=== PATIENT | female | born 1955 | race African-American/Black ===

== ENCOUNTER → 2016-11-03 | Outpatient (CLI) | payer BC ==
--- NOTE | 2016-11-03 12:09 | XCELERA REPORT ---
[address] [address] Lower Extremity Arterial Evaluation Name: FROY HARRINGTON Age: 61 yrs Gender: Female : 1955 Patient Status: Outpatient Patient Location: Study Date: 11/03/2016 09:21 AM Procedure: A color flow and duplex scan of the lower extremity arteries was performed on the right with velocity and waveform anaylsis. Reason For Study: RLE PAIN, INTERMITTENT CLAUDICATION Ordering Physician: CHRISTIAN TEMPLETON Performed By: Gabino Caruso Measurements and Calculations Right Left CHANGE MANAGEMENT LEAD PSV 113.9 cm/sec Prox PFA PSV -64.5 cm/sec Dist SFA PSV -65.6 cm/sec Dist Pop A PSV 44.0 cm/sec Dist MARIANN PSV 55.6 cm/sec Dist DIRECTOR OF CORPORATE COMMUNICATIONS PSV -62.1 cm/sec Aiden Pedis PSV 46.0 cm/sec Right Side Arterial Evaluation Normal velocity, waveform and triphasic flow are present, from the Common Femoral artery down to the infrageniculate vessels. The ankle-brachial index is 1.04. 0stenosis is noted. Interpretation Summary No hemodynamically significant lesions in the right lower extremity only, on duplex imaging, at rest. : CHRISTIAN TEMPLETON > Omar Harris
== END ==
LOC: SP 09:05
PROVIDERS: ATTEND Family Medicine
DX: I70.211 Atherosclerosis of native arteries of extremities with intermittent claudication, right leg (principal)
CPT/HCPCS: 93926

== ENCOUNTER → 2017-09-28 | Outpatient (CLI) | payer BC ==
--- NOTE | 2017-09-28 17:42 | WOMENS IMAGING REPORT ---
EXAM DESCRIPTION: 3D SCREENING MAMMO BILAT COMPLETED DATE/TIME: 09/28/2017 1:56 pm REASON FOR STUDY: ROUTINE SCREENING; Z12.31 Z12.31 ENCNTR SCREEN MAMMOGRAM FOR MALIGNANT NEOPLASM O F PHILL COMPARISON: 2008, 2009 TECHNIQUE: Standard craniocaudal and mediolateral oblique views of each breast recorded using digita l acquisition and breast tomosynthesis. LIMITATIONS: None. FINDINGS: No masses, calcifications or architectural distortion. No areas of suspicion. Read with the assistance of CAD. .[facility] - R2 Cenova Version 1.3 .[facility] - R2 Cenova Version 1.3 .[facility] - R2 Cenova Version 2.4 .[facility] - R2 Cenova Version 2.4 .[facility] - R2 Client Service And Consulting Manager Version 9.2 IMPRESSION: NORMAL MAMMOGRAM. BIRADS 1. BREAST DENSITY: b. There are scattered areas of fibroglandular density. BIRAD: 1 NEGATIVE RECOMMENDATION: ROUTINE SCREENING Please continue bilateral screening tomosynthesis in August 2018 COMMENT: The patient has been notified of the results by letter per SA requirements. Additional no tification policies are in place for contacting patient with suspicious or incomplete findings. Quality ID #[id number]: The [employer] [place] [employer] [employer] recommends an annual screening mammogram for women aged 40 years or over. This facility utilizes a reminder system to ensure that all patients receive reminder letters, and/or direct phone calls for appointments. This includes reminders for routine scr eening mammograms, diagnostic mammograms, or other Breast Imaging Interventions when appropriate. Th is patient will be placed in the appropriate reminder system. The [employer] [place] [employer] (ACR) has developed recommendations for screening MRI of the breast s in certain patient populations, to be used in conjunction with mammography. Breast MRI surveillanc e may be appropriate for women with more than 20% lifetime risk of developing breast cancer as deter mined by genetic testing, significant family history of the disease, or history of mantle radiation f or Hodgkins Disease. ACR Practice Guidelines 2008. DBT Technology DBT is a type of tomographic mammography. With conventional mammography, overlapping breast tissue ma y make lesions difficult to detect, even with good compression. DBT uses an x-ray tube that rotates a round the breast, taking images at different angles. These images are then combined to create thin sl ices of the breast that the radiologist can view as a 3D reconstruction. The [employer] unit can perform full-field digital mammograms (2D imaging); or DBT (3D imaging); or both, in a combination mode that quickly performs both the mammogram and the tomosynthesis scan while the breast is still compressed. PQRS 6045F: Fluoroscopic imaging is not utilized for breast tomosynthesis. TECHNICAL DOCUMENTATION: FINDING NUMBER: (1) ASSESSMENT: (1) JOB ID: [id number] [employer]- All Rights Reserved
== END ==
LOC: WI 13:17
PROVIDERS: ATTEND Internal Medicine Geriatric Medicine
DX: Z12.31 Encounter for screening mammogram for malignant neoplasm of breast (principal)
CPT/HCPCS: 77063; G0202; 77067

== ENCOUNTER 2017-12-18 15:48 | Emergency (ER) | payer OTHER, BC ==
[2017-12-18] MEDS ORDERED: CEPHALEXIN 500 MG CAPSULE PO ONE (16:34)
[2017-12-18] MEDS ORDERED: ACETAMINOPHEN 325 MG TABLET PO ONE (16:34)
[2017-12-18] MEDS ORDERED: DIPH/PERTUSS(ACELL)/TETANUS VAC/PF 0.5 ML SYR (>=10YO) IM ONE (16:34)
[2017-12-18] MEDS ORDERED: LIDOCAINE 1% INJ-PF (10 MG/ML) 30 ML SDV INJ ONE (16:35)
--- NOTE | 2017-12-18 16:37 | ER Document Report ---
HPI - HPI Patient complains to provider of: Thumb laceration Pain Level: 4 Context: Patient is a [id number] 62-year-old female who presents emergency department with a left thumb laceration. 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 Tetanus is not up-to-date bleeding under control has full range of motion of her thumb no pain, full range of motion. does not have the thumb tissue with her - MUSCULOSKELETAL Musculoskeletal: REPORTS: Extremity pain - R thumb Past Medical History - Social History Smoking Status: Unknown if Ever Smoked Family History: Reviewed & Not Pertinent Patient has suicidal ideation: No Patient has homicidal ideation: No - Past Medical History Cardiac Medical History: Reports: Hx Hypercholesterolemia Denies: Hx Heart Attack, Hx Hypertension Pulmonary Medical History: Denies: Hx Asthma Neurological Medical History: Denies: Hx Cerebrovascular Accident, Hx Seizures Endocrine Medical History: Reports: Hx Diabetes Mellitus Type 2 Renal/ Medical History: Denies: Hx Peritoneal Dialysis GI Medical History: Denies: Hx Hepatitis, Hx Hiatal Hernia, Hx Ulcer Infectious Medical History: Denies: Hx Hepatitis Past Surgical History: Denies: Hx Mastectomy, Hx Open Heart Surgery, Hx Pacemaker Vertical Provider Document - CONSTITUTIONAL Agree With Documented VS: Yes Notes: PHYSICAL EXAM GENERAL: Alert, interacts well. EXTREMITIES: Moves all 4 extremities spontaneously. No edema, radial and dorsalis pedis pulses 2/4 bilaterally. No cyanosis. NEUROLOGICAL: Alert and oriented x4. Normal speech. PSYCH: Normal affect, normal mood. SKIN: Warm, dry, normal turgor. slice laceration to the medial aspect of the left thumb with nail involvement. no active bleeding, sensation intact around it - INFECTION CONTROL TRAVEL OUTSIDE OF THE [place] IN LAST 30 DAYS: No - RESPIRATORY O2 Sat by Pulse Oximetry: 98 Course - Re-evaluation Re-evalutation: 12/18/17 17:32 Patient is a 62-year-old female is hemodynamically stable, no acute distress and afebrile. Wound was irrigated using Betadine and saline after digital block was performed. Wound was dressed utilizing bacitracin, Xeroform gauze and a finger splint. Tetanus status updated and patient initiated on antibiotics. Patient educated on wound care and referral given to the wound care clinic. Patient otherwise stable for discharge home - Vital Signs Vital signs: Temp Pulse Resp BP Pulse Ox 98.7 F 81 16 141/74 H 98 12/18/17 15:55 12/18/17 15:55 12/18/17 15:55 12/18/17 15:55 12/18/17 15:55 Discharge - Discharge Clinical Impression: Finger laceration Qualifiers: Encounter type: initial encounter Finger: thumb Damage to nail status: with damage Foreign body presence: without foreign body Laterality: left Qualified Code(s): S61.112A - Laceration without foreign body of left thumb with damage to nail, initial encounter Condition: Good Disposition: HOME, SELF-CARE Instructions: Dressing Instructions for Open Wounds ([facility]) Additional Instructions: Your wound was not able to be closed with stitches due to the nature of the injury. Please utilize antibiotic ointment and gauze dressing at least twice a day and cover with the splint until the wound is healed. No submerged water activities such as washing dishes, swimming or bathes. You can Shower tonight. Please make an appointment with the wound clinic for follow-up in one week. Otherwise please take antibiotics as directed. Please return to the emergency department with any worsening redness, hurst cloudy drainage, fevers chills or any other symptoms that are worrisome to you Prescriptions: Cephalexin Monohydrate [Keflex 500 mg Capsule] 500 mg PO Q12H 10 Days capsule Forms: Return to Work Referrals: KERVIN ESPINO DO [Primary Care Provider] - Follow up in 1 week Wound Care [Provider Group] - Follow up in 1 week
[2017-12-18 18:45] VITALS: BP 136/86
== END 2017-12-18 18:44 | disposition home or self-care (01) ==
LOC: ER 15:48
PROC: 3E0T3BZ Introduction of Anesthetic Agent into Peripheral Nerves and Plexi, Percutaneous Approach (ICD-10-PCS; principal; 2017-12-18)
DX: S61.112A Laceration without foreign body of left thumb with damage to nail, initial encounter (principal); W45.8XXA Other foreign body or object entering through skin, initial encounter
CPT/HCPCS: 99282; 90715; 64455; J3490

== ENCOUNTER 2018-06-04 18:22 | Emergency (ER) | payer BC, OTHER ==
--- NOTE | 2018-06-04 19:50 | ER Document Report ---
ED Medical Screen (RME) - General Chief Complaint: Abdominal Pain Stated Complaint: LOWER RIGHT SIDE Time Seen by Provider: 06/04/18 19:49 Mode of Arrival: Ambulatory Information source: Patient Notes: Patient is a nontoxic-appearing 63-year-old female who presents with chief complaint of right lower quadrant pain. Patient reports pain has been ongoing since last . Worsening today. Patient reports the pain is increased with walking. Patient denies any nausea, vomiting, fever or diarrhea. Past surgical history includes . Exam: Tenderness to palpation to right lower quadrant, no rebound no guarding. I have greeted and performed a rapid initial assessment of this patient. A comprehensive ED assessment and evaluation of the patient, analysis of test results and completion of the medical decision making process will be conducted by additional ED providers. Dictation of this chart was performed using voice recognition software; therefore, there may be some unintended grammatical errors. TRAVEL OUTSIDE OF THE [place] IN LAST 30 DAYS: No - Related Data Allergies/Adverse Reactions: No Known Allergies Allergy (Verified 12/18/17 15:49) Past Medical History - Past Medical History Cardiac Medical History: Reports: Hx Hypercholesterolemia Denies: Hx Heart Attack, Hx Hypertension Pulmonary Medical History: Denies: Hx Asthma Neurological Medical History: Denies: Hx Cerebrovascular Accident, Hx Seizures Endocrine Medical History: Reports: Hx Diabetes Mellitus Type 2 Renal/ Medical History: Denies: Hx Peritoneal Dialysis GI Medical History: Denies: Hx Hepatitis, Hx Hiatal Hernia, Hx Ulcer Infectious Medical History: Denies: Hx Hepatitis Past Surgical History: Denies: Hx Mastectomy, Hx Open Heart Surgery, Hx Pacemaker Physical Exam - Vital signs Vitals: Temp Pulse Resp BP Pulse Ox 98.1 F 77 18 124/68 99 06/04/18 18:55 06/04/18 18:55 06/04/18 18:55 06/04/18 18:55 06/04/18 18:55 Course - Vital Signs Vital signs: Temp Pulse Resp BP Pulse Ox 98.1 F 77 18 124/68 99 06/04/18 18:55 06/04/18 18:55 06/04/18 18:55 06/04/18 18:55 06/04/18 18:55 Doctor's Discharge - Discharge Referrals: KERVIN ESPINO I, [Primary Care Provider] - Follow up as needed
[2018-06-04 21:23] LABS: ABSOLUTE EOSINOPHILS # (AUTO) 0.2 10^3/uL (0.0-0.6); ABSOLUTE LYMPHOCYTES (AUTO) 2.9 10^3/uL (0.5-4.7); ABSOLUTE MONOCYTES (AUTO) 0.5 10^3/uL (0.1-1.4); ABSOLUTE NEUT (AUTO) 2.1 10^3/uL (1.7-8.2); BASOPHILS % (AUTO) 0.3 % (0-2); EOSINOPHILS % (AUTO) 2.8 % (0-6); HEMATOCRIT 41.6 % (36.0-47.0); HEMOGLOBIN 13.9 g/dL (12.0-15.5); LYMPHOCYTES % (AUTO) 50.7 % (13-45); MEAN CORPUSCULAR HEMOGLOBIN 29.8 pg (27.0-33.4); MEAN CORPUSCULAR HGB CONC 33.5 g/dL (32.0-36.0); MEAN CORPUSCULAR VOLUME 89 fl (80-97); MONOCYTES % (AUTO) 8.7 % (3-13); PLATELET COUNT 332 10^3/uL (150-450); RED BLOOD COUNT 4.68 10^6/uL (3.72-5.28); SEGMENTED NEUTROPHILS % (AUTO) 37.5 % (42-78); TOTAL CELLS COUNTED % (AUTO) 100 %; WHITE BLOOD COUNT 5.6 10^3/uL (4.0-10.5)
[2018-06-04 21:27] LABS: APPEARANCE,URINE CLEAR; BILIRUBIN,URINE NEGATIVE (NEGATIVE); COLOR,URINE YELLOW; GLUCOSE, URINE NEGATIVE (NEGATIVE); KETONES,URINE NEGATIVE (NEGATIVE); LEUKOCYTE ESTERASE,URINE NEGATIVE (NEGATIVE); NITRITE,URINE NEGATIVE (NEGATIVE); PROTEIN,URINE NEGATIVE (NEGATIVE); URINE SPECIFIC GRAVITY 1.023; UROBILINOGEN,URINE NEGATIVE mg/dL (<2.0)
[2018-06-04 21:41] LABS: ALANINE AMINOTRANSFERASE 40 U/L (9-52); ALBUMIN 4.1 g/dL (3.5-5.0); ALKALINE PHOSPHATASE 54 U/L (38-126); ANION GAP 10 (5-19); ASPARTATE AMINO TRANSFERASE 25 U/L (14-36); BILIRUBIN,DIRECT 0.2 mg/dL (0.0-0.4); BILIRUBIN,TOTAL 0.3 mg/dL (0.2-1.3); BLOOD UREA NITROGEN 19 mg/dL (7-20); CALCIUM 9.7 mg/dL (8.4-10.2); CARBON DIOXIDE 27 mmol/L (22-30); CHLORIDE 105 mmol/L (98-107); GLUCOSE 79 mg/dL (75-110); LIPASE 101.6 U/L (23-300); POTASSIUM 4.5 mmol/L (3.6-5.0); SODIUM 142.2 mmol/L (137-145); TOTAL PROTEIN 7.3 g/dL (6.3-8.2)
--- NOTE | 2018-06-04 23:31 | ER Document Report ---
ED GI/ - General Chief Complaint: Abdominal Pain Stated Complaint: LOWER RIGHT SIDE Time Seen by Provider: 06/04/18 19:49 Mode of Arrival: Ambulatory TRAVEL OUTSIDE OF THE [place] IN LAST 30 DAYS: No - HPI Patient complains to provider of: Abdominal pain - 63-year-old female who presents for evaluation of pain along her right lower abdomen which is developed over the last 2 days. 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 She denies any other symptoms, no change in bladder or bowel function, no episodes of emesis, no fevers no chills no rashes no chest pain shortness of breath no recent falls. She has not taken anything try and help with this nothing seemed to make it any better but movement seems to make it worse. She has never had anything like this in the past. - Related Data Allergies/Adverse Reactions: No Known Allergies Allergy (Verified 12/18/17 15:49) Past Medical History - General Information source: Patient - Social History Smoking Status: Never Smoker Family History: Reviewed & Not Pertinent - Past Medical History Cardiac Medical History: Reports: Hx Hypercholesterolemia Denies: Hx Heart Attack, Hx Hypertension Pulmonary Medical History: Denies: Hx Asthma Neurological Medical History: Denies: Hx Cerebrovascular Accident, Hx Seizures Endocrine Medical History: Reports: Hx Diabetes Mellitus Type 2 Renal/ Medical History: Denies: Hx Peritoneal Dialysis GI Medical History: Denies: Hx Hepatitis, Hx Hiatal Hernia, Hx Ulcer Infectious Medical History: Denies: Hx Hepatitis Past Surgical History: Denies: Hx Mastectomy, Hx Open Heart Surgery, Hx Pacemaker Review of Systems - Review of Systems -: Yes All other systems reviewed and negative Physical Exam - Vital signs Vitals: Temp Pulse Resp BP Pulse Ox 98.1 F 77 18 124/68 99 06/04/18 18:55 06/04/18 18:55 06/04/18 18:55 06/04/18 18:55 06/04/18 18:55 - General General appearance: Appears well In distress: None - HEENT Head: Normocephalic Eyes: Normal Conjunctiva: Normal - Respiratory Respiratory status: No respiratory distress Chest status: Nontender Breath sounds: Normal Chest palpation: Normal - Cardiovascular Rhythm: Regular Heart sounds: Normal auscultation Murmur: No - Abdominal Inspection: Normal Distension: No distension Bowel sounds: Normal Tenderness: Other - Tenderness in the right lower abdomen along the inguinal ligament, there is no appreciable rebound, there is no appreciable guarding - Back Back: Normal - Extremities General upper extremity: Normal inspection General lower extremity: Normal inspection - Neurological Neuro grossly intact: Yes Cognition: Normal Orientation: AAOx4 - Psychological Associated symptoms: Normal affect Course - Re-evaluation Re-evalutation: 06/06/18 16:41 This 63-year-old woman presented for evaluation of right lower quadrant abdominal pain which she has had for 2 days without any other secondary symptoms. She is otherwise healthy woman who sweats no significant surgical history. On examination this woman is nontoxic in appearance and otherwise appears relatively comfortable she is able to ambulate normally has been able to eat and drink. Her differential is broad including but not limited to potential appendicitis, ovarian pathology, hernia, or internal or external oblique strain. Because of her broad differential will plan for imaging to further characterize as well as lab tests to characterize what may be the etiology of her pain. Her CBC is nondiagnostic she has a normal white blood cell count, she does demonstrate a slight lymphopcytosis which may represent a possibly developing viral process. Her CMP is normal. CT the abdomen and pelvis does not demonstrate any abnormality in the right which is likely accounting for this patient's pain. On reexamination this patient's abdomen remains benign, she has been able to tolerate p.o. in the emergency department. Given that she is well appearing nontoxic and has a nondiagnostic CT of the abdomen and pelvis believe that she is likely safe for follow-up as an outpatient. Have written her a work note will plan for discharge with return precautions. - Vital Signs Vital signs: Temp Pulse Resp BP Pulse Ox 98.1 F 68 16 115/62 98 06/04/18 18:55 06/05/18 02:42 06/05/18 02:42 06/05/18 02:42 06/05/18 02:42 - Laboratory Result Diagrams: 06/04/18 20:44 06/04/18 20:44 Laboratory results interpreted by me: 06/04/18 06/04/18 20:44 20:44 Seg Neutrophils % 37.5 L Lymphocytes % 50.7 H Urine Ascorbic Acid 40 H Discharge - Discharge Clinical Impression: Abdominal pain Condition: Good Disposition: HOME, SELF-CARE Instructions: Abdominal Pain ([facility]) Prescriptions: Naproxen 500 mg PO BID #30 tablet Forms: Return to Work
--- NOTE | 2018-06-05 01:50 | RADIOLOGY REPORT (SQ) ---
EXAM DESCRIPTION: CT ABDOMEN PELVIS WITH IV CONTRAST COMPLETED DATE/TME: 06/05/2018 00:00 CLINICAL HISTORY: RLQ abdominal pain COMPARISON: None Available. TECHNIQUE: CT of the abdomen and pelvis performed following IV administration of 88 mL of Omnipaque 350. DLP: 1030.20 mGycm FINDINGS: Lung Bases: The visualized lung bases are clear. Bones: No destructive bone lesions identified. Endplate spondylosis. Abdomen: Liver: The liver has normal size and density. No intrahepatic mass or biliary dilatation. Gallbladder: No calcified gallstones. Spleen, Pancreas, and Adrenal Glands: The spleen, pancreas, and adrenal glands are unremarkable. Kidneys: The kidneys have normal size and contour without evidence of solid mass or hydronephrosis. Vasculature: The aorta and IVC have normal caliber and position. The portal vein is patent. The proximal visceral and renal arteries are patent. Stomach: The stomach and duodenum have normal course. Other: No free intraperitoneal air. No free fluid or lymphadenopathy. Pelvis: Bladder: Urinary bladder is unremarkable. Bowel: No dilated loops of large or small bowel. Appendix: Normal appendix. Pelvis: Enlarged fibroid uterus. IMPRESSION: 1. No acute inflammatory or obstructive process identified. This exam was performed according to our departmental dose-optimization program, which includes automated exposure control, adjustment of the mA and/or kV according to patient size and/or use of iterative reconstruction technique.
[2018-06-05 02:43] VITALS: BP 115/62
== END 2018-06-05 02:45 | disposition home or self-care (01) ==
LOC: ER 18:22
DX: R10.31 Right lower quadrant pain (principal); E78.00 Pure hypercholesterolemia, unspecified; E11.9 Type 2 diabetes mellitus without complications
CPT/HCPCS: 36415; 74177; 80053; 81001; 83690; 85025; 99284

== ENCOUNTER → 2018-08-11 | Outpatient (CLI) | payer BC ==
[2018-08-11 11:16] LABS: ABSOLUTE EOSINOPHILS # (AUTO) 0.2 10^3/uL (0.0-0.6); ABSOLUTE LYMPHOCYTES (AUTO) 2.3 10^3/uL (0.5-4.7); ABSOLUTE MONOCYTES (AUTO) 0.4 10^3/uL (0.1-1.4); ABSOLUTE NEUT (AUTO) 2.1 10^3/uL (1.7-8.2); BASOPHILS % (AUTO) 0.5 % (0-2); EOSINOPHILS % (AUTO) 3.3 % (0-6); HEMATOCRIT 41.5 % (36.0-47.0); LYMPHOCYTES % (AUTO) 46.1 % (13-45); MEAN CORPUSCULAR HEMOGLOBIN 29.8 pg (27.0-33.4); MEAN CORPUSCULAR HGB CONC 33.6 g/dL (32.0-36.0); MEAN CORPUSCULAR VOLUME 89 fl (80-97); MONOCYTES % (AUTO) 7.8 % (3-13); PLATELET COUNT 305 10^3/uL (150-450); RED BLOOD COUNT 4.68 10^6/uL (3.72-5.28); RED CELL DISTRIBUTION WIDTH 13.8 % (11.5-14.0); SEGMENTED NEUTROPHILS % (AUTO) 42.3 % (42-78); TOTAL CELLS COUNTED % (AUTO) 100 %; WHITE BLOOD COUNT 4.9 10^3/uL (4.0-10.5)
[2018-08-11 11:26] LABS: ALANINE AMINOTRANSFERASE 34 U/L (9-52); ALBUMIN 3.9 g/dL (3.5-5.0); ALKALINE PHOSPHATASE 61 U/L (38-126); ANION GAP 8 (5-19); ASPARTATE AMINO TRANSFERASE 24 U/L (14-36); BILIRUBIN,DIRECT 0.2 mg/dL (0.0-0.4); BILIRUBIN,TOTAL 0.7 mg/dL (0.2-1.3); BLOOD UREA NITROGEN 14 mg/dL (7-20); CALCIUM 9.4 mg/dL (8.4-10.2); CARBON DIOXIDE 29 mmol/L (22-30); CHLORIDE 103 mmol/L (98-107); CHOLESTEROL 234.83 mg/dL (0-200); GLUCOSE 98 mg/dL (75-110); POTASSIUM 4.4 mmol/L (3.6-5.0); SODIUM 139.7 mmol/L (137-145); TRIGLYCERIDES 71 mg/dL (<150)
[2018-08-11 11:37] LABS: DIRECT LDL 104 mg/dL (<100)
== END ==
LOC: OD 09:41
PROVIDERS: ATTEND Internal Medicine Geriatric Medicine
DX: E78.5 Hyperlipidemia, unspecified (principal)
CPT/HCPCS: 36415; 80053; 80061; 85025

== ENCOUNTER → 2018-10-16 | Outpatient (CLI) | payer BC ==
--- NOTE | 2018-10-16 16:49 | WOMENS IMAGING REPORT ---
EXAM DESCRIPTION: 3D SCREENING MAMMO BILAT COMPLETED DATE/TIME: 10/16/2018 2:25 pm REASON FOR STUDY: SCREENING MAMMO Z12.31 ENCNTR SCREEN MAMMOGRAM FOR MALIGNANT NEOPLASM OF PHILL COMPARISON: Multiple since 2008 TECHNIQUE: Standard craniocaudal and mediolateral oblique views of each breast recorded using digita l acquisition and breast tomosynthesis. LIMITATIONS: None. FINDINGS: No masses, calcifications or architectural distortion. No areas of suspicion. Read with the assistance of CAD. .[facility] - R2 Cenova Version 1.3 .[facility] Imaging - R2 Cenova Version 1.3 .[facility] Imaging - R2 Cenova Version 2.4 .[facility] - R2 Cenova Version 2.4 .[facility] - R2 Roller Gold Leaf Version 9.2 IMPRESSION: NORMAL MAMMOGRAM. BIRADS 1. BREAST DENSITY: b. There are scattered areas of fibroglandular density. BIRAD: 1 NEGATIVE RECOMMENDATION: ROUTINE SCREENING Please continue yearly bilateral screening mammography/tomosynthesis in September 2019 COMMENT: The patient has been notified of the results by letter per SA requirements. Additional no tification policies are in place for contacting patient with suspicious or incomplete findings. Quality ID #[id number]: The [employer] recommends an annual screening mammogram for women aged 40 years or over. This facility utilizes a reminder system to ensure that all patients receive reminder letters, and/or direct phone calls for appointments. This includes reminders for routine scr eening mammograms, diagnostic mammograms, or other Breast Imaging Interventions when appropriate. Th is patient will be placed in the appropriate reminder system. The [employer] (ACR) has developed recommendations for screening MRI of the breast s in certain patient populations, to be used in conjunction with mammography. Breast MRI surveillanc e may be appropriate for women with more than 20% lifetime risk of developing breast cancer as deter mined by genetic testing, significant family history of the disease, or history of mantle radiation f or Hodgkins Disease. ACR Practice Guidelines 2008. DBT Technology DBT is a type of tomographic mammography. With conventional mammography, overlapping breast tissue ma y make lesions difficult to detect, even with good compression. DBT uses an x-ray tube that rotates a round the breast, taking images at different angles. These images are then combined to create thin sl ices of the breast that the radiologist can view as a 3D reconstruction. The [employer] unit can perform full-field digital mammograms (2D imaging); or DBT (3D imaging); or both, in a combination mode that quickly performs both the mammogram and the tomosynthesis scan while the breast is still compressed. PQRS 6045F: Fluoroscopic imaging is not utilized for breast tomosynthesis. TECHNICAL DOCUMENTATION: FINDING NUMBER: (1) ASSESSMENT: (1) JOB ID: [id number] [employer]- All Rights Reserved Reading location - IP/workstation name: [facility]-[email or web address]
== END ==
LOC: WI 14:03
PROVIDERS: ATTEND Internal Medicine Geriatric Medicine
DX: Z12.31 Encounter for screening mammogram for malignant neoplasm of breast (principal)
CPT/HCPCS: 77063; 77067

== ENCOUNTER 2018-11-29 02:17 | Emergency (ER) | payer BC ==
--- NOTE | 2018-11-29 04:23 | ER Document Report ---
ED Headache - General Chief Complaint: Headache Stated Complaint: HEADACHE Time Seen by Provider: 11/29/18 04:23 Primary Care Provider: CHRISTIAN TEMPLETON MD [Primary Care Provider] - Follow up as needed Mode of Arrival: Ambulatory Information source: Patient Notes: HISTORY OF PRESENT ILLNESS: Patient is a 63-year-old female with a past medical history of hypertension, diabetes, and chronic headache/migraines who presents with headache for the past 7-10 days. Patient reports taking Imitrex at home with initial improvement but the headache came back. Location: Global Onset: Sudden Provocation: Loud noises Quality: Sharp, throbbing Radiation: None Severity: "Severe" Timing: Constant History of headaches: Yes Recent head inury: No Vision changes: None Trouble walking: No REVIEW OF SYSTEMS: CONSTITUTIONAL : Denies fever or chills, no sweats. Denies recent illness. EENT: Denies eye, ear, throat, or mouth pain or symptoms. Denies nasal or sinus congestion. CARDIOVASCULAR: Denies chest pain. RESPIRATORY: Denies cough, cold, or chest congestion. Denies shortness of breath, difficulty breathing, or wheezing. GASTROINTESTINAL: Denies abdominal pain. Denies nausea, vomiting, or diarrhea. Denies constipation. GENITOURINARY: Denies difficulty urinating, painful urination, burning, frequency, or blood in urine. FEMALE GENITOURINARY: Denies vaginal bleeding, abnormal or irregular periods. MUSCULOSKELETAL: Denies body aches. Denies neck or back pain or joint pain or swelling. SKIN: Denies rash or skin lesions. HEMATOLOGIC : Denies easy bruising or bleeding. LYMPHATIC: Denies swollen, enlarged glands. NEUROLOGICAL: Positive for headaches. Denies altered mental status or loss of consciousness. Denies weakness or paralysis or loss of use of either side. Denies problems with gait or speech. Denies sensory or motor loss. PSYCHIATRIC: Denies anxiety or stress or depression. All other systems reviewed and negative. PHYSICAL EXAMINATION: GENERAL: Well-appearing, well-nourished and in no acute distress. HEAD: Atraumatic, normocephalic. No scalp deformity, depression, or crepitance. EYES: Pupils are 3 mm and equal/round/reactive to light, extraocular movements intact, sclera anicteric, conjunctiva are normal. ENT: Nares patent bilaterally, oropharynx clear without exudates or palatal petechia. Moist mucous membranes. No tonsil hypertrophy. NECK: Normal range of motion, supple without lymphadenopathy. LUNGS: Breath sounds present, equal, and clear to auscultation bilaterally. No wheezes, rales, or rhonchi. HEART: Regular rate and rhythm without murmurs, rubs, or gallops. 2+ peripheral pulses. Normal capillary refill. ABDOMEN: Soft, nontender, nondistended. Normoactive bowel sounds. No guarding, no rebound. No masses appreciated. BACK: Normal contour, no midline tenderness. Rectal exam deferred. PELVC: Deferred. EXTREMITIES: Normal range of motion, no pitting or edema. No cyanosis. NEUROLOGICAL: No focal neurological deficits. Cranial nerves III-XII grossly intact. Moves all extremities spontaneously and on command. PSYCH: Normal mood, normal affect. SKIN: Warm, dry, normal turgor, no rashes or lesions noted. ASSESSMENT AND PLAN: This patient is a 63-year-old female who presents with recurrent headache. Could either be recurrent migraine headache versus cluster headache versus tension headache. Overall patient is nontoxic appearing without fever/confusion/ataxia, no concern for subarachnoid hemorrhage or acute meningitis given lack of overall benign appearance and duration of symptoms since onset over a week ago. 1. Will give intramuscular Toradol as well as both oral Reglan and Fioricet. 2. Will reassess for improvement and anticipate discharge. TRAVEL OUTSIDE OF THE [place] IN LAST 30 DAYS: No - Related Data Allergies/Adverse Reactions: No Known Allergies Allergy (Verified 11/29/18 04:20) Past Medical History - General Information source: Patient - Social History Smoking Status: Never Smoker Chew tobacco use (# tins/day): No Frequency of alcohol use: None Drug Abuse: None Lives with: Alone Family History: Reviewed & Not Pertinent Patient has suicidal ideation: No Patient has homicidal ideation: No - Past Medical History Cardiac Medical History: Reports: Hx Hypercholesterolemia Denies: Hx Heart Attack, Hx Hypertension Pulmonary Medical History: Reports: None Denies: Hx Asthma EENT Medical History: Reports: None Neurological Medical History: Reports: None. Denies: Hx Cerebrovascular Accident, Hx Seizures Endocrine Medical History: Reports: Hx Diabetes Mellitus Type 2 Renal/ Medical History: Reports: None. Denies: Hx Peritoneal Dialysis Malignancy Medical History: Reports: None GI Medical History: Reports: None. Denies: Hx Hepatitis, Hx Hiatal Hernia, Hx Ulcer Musculoskeletal Medical History: Reports None Skin Medical History: Reports None Psychiatric Medical History: Reports: None Traumatic Medical History: Reports: None Infectious Medical History: Reports: None. Denies: Hx Hepatitis Surgical Hx: Negative Past Surgical History: Reports: None. Denies: Hx Mastectomy, Hx Open Heart Surgery, Hx Pacemaker - Immunizations Immunizations up to date: Yes Hx Diphtheria, Pertussis, Tetanus Vaccination: Yes Physical Exam - Vital signs Vitals: Temp Pulse Resp BP Pulse Ox 98.4 F 74 16 139/82 H 97 11/29/18 02:21 11/29/18 02:21 11/29/18 02:21 11/29/18 02:21 11/29/18 02:21 Course - Re-evaluation Re-evalutation: 11/29/18 06:13 The patient's headache is resolved. She will be discharged home with return precautions and follow-up. She voices both understanding and agreeing with the plan. - Vital Signs Vital signs: Temp Pulse Resp BP Pulse Ox 98.4 F 74 16 139/82 H 97 11/29/18 02:21 11/29/18 02:21 11/29/18 02:21 11/29/18 02:21 11/29/18 02:21 Discharge - Discharge Clinical Impression: Migraine headache without aura Qualifiers: Status migrainosus presence: without status migrainosus Intractability: not intractable Qualified Code(s): G43.009 - Migraine without aura, not intractable, without status migrainosus Condition: Good Disposition: HOME, SELF-CARE Instructions: Migraine Headache ([facility]) Additional Instructions: You have been evaluated in the Emergency Department for a migraine headache. Please follow-up with your [primary physician] as instructed in 1-2 weeks for a recheck. Return to the Emergency Department if you experience worsening headaches, vision changes, difficulty walking, weakness, or any other concerning symptoms. Prescriptions: Butalb/Acetaminophen/Caffeine [Fioricet (50-325-40 mg) Tablet] 1 tab PO Q6H PRN #30 tab PRN Reason: For Headache Metoclopramide HCl [Reglan 10 mg Tablet] 1 tab PO Q8H PRN #30 tablet PRN Reason: Referrals: CHRISTIAN TEMPLETON MD [Primary Care Provider] - Follow up as needed Print Language: Lithuanian
[2018-11-29] MEDS ORDERED: KETOROLAC TROMETHAMINE 60 MG/2 ML SDV IM ONE (05:12)
[2018-11-29] MEDS ORDERED: BUTALB/ACETAMINOPHEN/CAFFEINE 1 TAB EACH PO ONE (05:12)
[2018-11-29] MEDS ORDERED: METOCLOPRAMIDE HCL 10 MG TABLET PO ONE (05:12)
[2018-11-29 06:41] VITALS: BP 125/78
== END 2018-11-29 06:20 | disposition home or self-care (01) ==
LOC: ER 02:17
DX: G43.009 Migraine without aura, not intractable, without status migrainosus (principal); E11.9 Type 2 diabetes mellitus without complications
CPT/HCPCS: 99283; 96372; J3490; J1885

== ENCOUNTER 2019-11-15 18:26 | Emergency (ER) | payer BC, MEDICARE ==
--- NOTE | 2019-11-15 19:17 | ER Document Report ---
ED Medical Screen (RME) - General Chief Complaint: Abdominal Pain Stated Complaint: LOWER BACK PAIN Time Seen by Provider: 11/15/19 19:15 Primary Care Provider: CHRISTIAN TEMPLETON MD [Primary Care Provider] - Follow up as needed TRAVEL OUTSIDE OF THE [place] IN LAST 30 DAYS: No - HPI Notes: 11/15/19 19:16 Patient is a 64-year-old female no significant past medical history presents co mplaining of bilateral lower back pain as well as bilateral lower abdominal pain that is been present for the past week. Patient states that the pain was initially intermittent, but has become constant. She has occasional burning with urination. No other vaginal bleeding, odor, or discharge. Denies drug allergies. No fever, chest pain, or shortness of breath. No saddle anesthesia or loss of control b/b. I have treated and performed a rapid initial assessment of this patient. A comprehensive ED assessment and evaluation of the patient, analysis of test results and completion of medical decision making process will be conducted by additional ED providers. PHYSICAL EXAMINATION: GENERAL: Well-appearing, well-nourished and in no acute distress. A&Ox4. Answers questions appropriately. Abd: Limited exam in triage, but tenderness noted to the bilateral lower abdomen. - Related Data Allergies/Adverse Reactions: No Known Allergies Allergy (Verified 11/29/18 04:20) Past Medical History - Past Medical History Cardiac Medical History: Reports: Hx Hypercholesterolemia Denies: Hx Heart Attack, Hx Hypertension Pulmonary Medical History: Denies: Hx Asthma Neurological Medical History: Reports: Hx Migraine. Denies: Hx Cerebrovascular Accident, Hx Seizures Endocrine Medical History: Reports: Hx Diabetes Mellitus Type 2 Renal/ Medical History: Denies: Hx Peritoneal Dialysis GI Medical History: Denies: Hx Hepatitis, Hx Hiatal Hernia, Hx Ulcer Infectious Medical History: Denies: Hx Hepatitis Past Surgical History: Denies: Hx Mastectomy, Hx Open Heart Surgery, Hx Pacemaker - Immunizations Immunizations up to date: Yes Hx Diphtheria, Pertussis, Tetanus Vaccination: Yes Physical Exam - Vital signs Vitals: Temp Pulse Resp BP Pulse Ox 97.8 F 92 16 146/81 H 99 11/15/19 18:31 11/15/19 18:31 11/15/19 18:31 11/15/19 18:31 11/15/19 18:31 Course - Vital Signs Vital signs: Temp Pulse Resp BP Pulse Ox 97.8 F 92 16 146/81 H 99 11/15/19 18:31 11/15/19 18:31 11/15/19 18:31 11/15/19 18:31 11/15/19 18:31 Doctor's Discharge - Discharge Referrals: CHRISTIAN TEMPLETON MD [Primary Care Provider] - Follow up as needed
[2019-11-15 19:49] LABS: ABSOLUTE EOSINOPHILS # (AUTO) 0.1 10^3/uL (0.0-0.6); ABSOLUTE LYMPHOCYTES (AUTO) 2.3 10^3/uL (0.5-4.7); ABSOLUTE MONOCYTES (AUTO) 0.5 10^3/uL (0.1-1.4); ABSOLUTE NEUT (AUTO) 2.4 10^3/uL (1.7-8.2); BASOPHILS % (AUTO) 0.3 % (0-2); EOSINOPHILS % (AUTO) 2.6 % (0-6); HEMATOCRIT 40.5 % (36.0-47.0); HEMOGLOBIN 13.7 g/dL (12.0-15.5); LYMPHOCYTES % (AUTO) 43.9 % (13-45); MEAN CORPUSCULAR HEMOGLOBIN 30.1 pg (27.0-33.4); MEAN CORPUSCULAR HGB CONC 33.8 g/dL (32.0-36.0); MEAN CORPUSCULAR VOLUME 89 fl (80-97); MONOCYTES % (AUTO) 9.2 % (3-13); PLATELET COUNT 275 10^3/uL (150-450); RED BLOOD COUNT 4.54 10^6/uL (3.72-5.28); RED CELL DISTRIBUTION WIDTH 13.7 % (11.5-14.0); TOTAL CELLS COUNTED % (AUTO) 100 %; WHITE BLOOD COUNT 5.4 10^3/uL (4.0-10.5)
[2019-11-15 20:02] LABS: APPEARANCE,URINE CLEAR; BILIRUBIN,URINE NEGATIVE (NEGATIVE); COLOR,URINE YELLOW; GLUCOSE, URINE NEGATIVE (NEGATIVE); KETONES,URINE NEGATIVE (NEGATIVE); LEUKOCYTE ESTERASE,URINE NEGATIVE (NEGATIVE); NITRITE,URINE NEGATIVE (NEGATIVE); PROTEIN,URINE NEGATIVE (NEGATIVE); URINE SPECIFIC GRAVITY 1.023
[2019-11-15 20:15] LABS: ALBUMIN 4.2 g/dL (3.5-5.0); ALKALINE PHOSPHATASE 57 U/L (38-126); ANION GAP 5 (5-19); ASPARTATE AMINO TRANSFERASE 25 U/L (14-36); BILIRUBIN,TOTAL 0.2 mg/dL (0.2-1.3); BLOOD UREA NITROGEN 19 mg/dL (7-20); CALCIUM 10.1 mg/dL (8.4-10.2); CARBON DIOXIDE 31 mmol/L (22-30); CHLORIDE 104 mmol/L (98-107); GLUCOSE 107 mg/dL (75-110); POTASSIUM 4.2 mmol/L (3.6-5.0); TOTAL PROTEIN 7.5 g/dL (6.3-8.2)
--- NOTE | 2019-11-15 21:45 | ER Document Report ---
ED General - General Chief Complaint: Abdominal Pain Stated Complaint: LOWER BACK PAIN Time Seen by Provider: 11/15/19 19:15 Primary Care Provider: CHRISTIAN TEMPLETON MD [Primary Care Provider] - Follow up as needed Notes: 64-year-old female presents emergency department complaining of low back pain that radiates to her low abdomen going on for the past 2 weeks. Patient states that when she first wakes up in the morning it is not bad but then when she starts walking around it worsens and radiates to her lower abdomen and then resolves that she continues to walk throughout the day. It does not radiate up her back. It does not cause any nausea, vomiting or diarrhea. It occasionally radiates to her right knee and she has a popping sensation in her right knee. She denies any numbness, tingling, weakness. Denies any bowel or bladder dysfunction. Admits a small amount of dysuria. Has not tried anything for this yet. Denies any vaginal discharge. Denies any trauma. TRAVEL OUTSIDE OF THE [place] IN LAST 30 DAYS: No - Related Data Allergies/Adverse Reactions: No Known Allergies Allergy (Verified 11/15/19 19:17) Past Medical History - General Information source: Patient - Social History Smoking Status: Never Smoker Chew tobacco use (# tins/day): No Frequency of alcohol use: None Drug Abuse: None Family History: Reviewed & Not Pertinent Patient has suicidal ideation: No Patient has homicidal ideation: No - Past Medical History Cardiac Medical History: Reports: Hx Hypercholesterolemia Denies: Hx Heart Attack, Hx Hypertension Pulmonary Medical History: Denies: Hx Asthma Neurological Medical History: Reports: Hx Migraine. Denies: Hx Cerebrovascular Accident, Hx Seizures Endocrine Medical History: Reports: Hx Diabetes Mellitus Type 2 Renal/ Medical History: Denies: Hx Peritoneal Dialysis GI Medical History: Denies: Hx Hepatitis, Hx Hiatal Hernia, Hx Ulcer Infectious Medical History: Denies: Hx Hepatitis Past Surgical History: Denies: Hx Mastectomy, Hx Open Heart Surgery, Hx Pacemaker - Immunizations Immunizations up to date: Yes Hx Diphtheria, Pertussis, Tetanus Vaccination: Yes Review of Systems - Review of Systems Constitutional: No symptoms reported Gastrointestinal: See HPI, Abdominal pain. denies: Diarrhea, Nausea, Vomiting Genitourinary: See HPI, Dysuria Musculoskeletal: See HPI, Back pain -: Yes All other systems reviewed and negative Physical Exam - Vital signs Vitals: Temp Pulse Resp BP Pulse Ox 97.8 F 92 16 146/81 H 99 11/15/19 18:31 11/15/19 18:31 11/15/19 18:31 11/15/19 18:31 11/15/19 18:31 Interpretation: Hypertensive - Notes Notes: GENERAL: Alert, interacts well. No acute distress. HEAD: Normocephalic, atraumatic EYES: Pupils equal, round and reactive to light, extraocular movements intact. ENT: Oral mucosa moist, tongue midline. NECK: Full range of motion, supple, trachea midline. LUNGS: Clear to auscultation bilaterally, no wheezes, rales or rhonchi, no respiratory distress. HEART: Regular rate and rhythm, no murmurs, gallops, rubs. ABDOMEN: Soft, nontender, nondistended, bowel sounds present in all 4 quadrants. EXTREMITIES: Moves all 4 extremities spontaneously, no edema, radial and dorsalis pedis pulses 2/4 bilaterally. No cyanosis. NEUROLOGICAL: Alert and oriented x3, normal speech, biceps and patellar DTRs 2+ bilaterally. Negative straight leg raising test, 5 out of 5 great toe strength raising bilaterally, no saddle anesthesia. BACK: No step-offs, no deformities, no midline bony tenderness to palpation. PSYCH: Normal mood, normal affect. SKIN: Warm, Dry, normal turgor, no rashes or lesions noted. Course - Re-evaluation Re-evalutation: 11/15/19 21:44 CBC unremarkable, CMP unremarkable, lipase normal, urinalysis unremarkable. No evidence of cauda equina syndrome. Uncertain exactly what is causing her abdominal pain in association with this back pain however the description sounds somewhat arthritic regarding the back pain. Patient is to do a short trial of muscle relaxers and anti-inflammatories and return for fevers, vomiting or new or concerning symptoms. Patient is agreeable to this plan. - Vital Signs Vital signs: Temp Pulse Resp BP Pulse Ox 97.8 F 92 16 146/81 H 99 11/15/19 18:31 11/15/19 18:31 11/15/19 18:31 11/15/19 18:31 11/15/19 18:31 - Laboratory Result Diagrams: 11/15/19 19:35 11/15/19 19:35 Laboratory results interpreted by me: 11/15/19 11/15/19 19:35 19:35 Carbon Dioxide 31 H Urine Urobilinogen 2.0 H Urine Ascorbic Acid 40 H Discharge - Discharge Clinical Impression: Lower abdominal pain of unknown etiology Low back pain Qualifiers: Chronicity: acute Back pain laterality: midline Sciatica presence: without sciatica Qualified Code(s): M54.5 - Low back pain Condition: Stable Disposition: HOME, SELF-CARE Additional Instructions: I do not know exactly what is causing your back pain. I suspect it is coming from some arthritis or muscle spasm in your back. Low Back Pain Three out of every four people will have an episode of disabling back pain during their lifetime. Most commonly the pain is due to straining of the muscles and ligaments in the low back. Usual treatment includes: (1) Rest on a firm surface. Avoid lying on your stomach. (2) Ice pack the painful area. After a few days, gentle heat may be used intermittently to relax the area, or ice packs can be continued. (3) Medication may be needed -- muscle relaxers and antiinflammatory medicines are commonly used. (4) As the back improves, exercises are prescribed to strengthen the back and abdominal muscles. Your doctor will advise you on the proper care for your back at each stage in your recovery. You may be better in a few days -- or healing may take several weeks. If new symptoms of a "herniated disc" (radiation of pain, numbness, or tingling down the back of the leg or weakness in the leg) occur, you should be re-examined. Further testing may be necessary. Please also return if you develop fever, worsening abdominal pain, vomiting or any new or concerning symptoms. Please use ibuprofen (Motrin or Advil) 600 mg every 8 hours as needed for pain. You may also use acetaminophen (Tylenol) 1000 mg every 4-6 hours as needed for pain. Please be aware that many medications contain acetaminophen, do not exceed a total of 1000 mg of acetaminophen every 6 hours. Prescriptions: Methocarbamol [Robaxin 750 mg Tablet] 750 mg PO ASDIR PRN #40 tablet PRN Reason: Referrals: CHRISTIAN TEMPLETON MD [Primary Care Provider] - Follow up as needed
[2019-11-15 21:58] VITALS: BP 141/87
== END 2019-11-15 21:58 | disposition home or self-care (01) ==
LOC: ER 18:26
DX: R10.30 Lower abdominal pain, unspecified (principal); M54.5 Low back pain; M25.561 Pain in right knee; R30.0 Dysuria; E11.9 Type 2 diabetes mellitus without complications
CPT/HCPCS: 36415; 80053; 81001; 83690; 85025; 87086; 99283

== ENCOUNTER 2020-06-01 19:47 | Emergency (ER) | payer BC, MEDICARE ==
[2020-06-01] MEDS ORDERED: NORMAL SALINE 1000 ML 1,000 ML IV ONE ×2 (20:35→21:48)
--- NOTE | 2020-06-01 20:40 | ER Document Report ---
ED Medical Screen (RME) - General Chief Complaint: High Blood Sugar Stated Complaint: DIZZINESS,WEAK,HIGH BLOOD SUGAR Time Seen by Provider: 06/01/20 20:34 Primary Care Provider: CHRISTIAN TEMPLETON MD [Primary Care Provider] - Follow up as needed Notes: HPI: 65-year-old female with no history of diabetes but his daughter is diabetic presenting to the emergency department complaining of dizziness, increased thirst and urination over the last week. No chest pain shortness of breath PHYSICAL EXAMINATION: Patient is not tachycardic, regular rate and rhythm, lung sounds are clear to auscultation. Patient blood glucose greater than 500 I have greeted and performed a rapid initial assessment of this patient. A comprehensive ED assessment and evaluation of the patient, analysis of test results and completion of medical decision making process will be conducted by an additional ED providers. TRAVEL OUTSIDE OF THE [place] IN LAST 30 DAYS: No - Related Data Allergies/Adverse Reactions: No Known Allergies Allergy (Verified 11/15/19 19:17) Home Medications: geritol qday Past Medical History - Past Medical History Cardiac Medical History: Reports: Hx Hypercholesterolemia Denies: Hx Heart Attack, Hx Hypertension Pulmonary Medical History: Denies: Hx Asthma Neurological Medical History: Reports: Hx Migraine. Denies: Hx Cerebrovascular Accident, Hx Seizures Endocrine Medical History: Reports: Hx Diabetes Mellitus Type 2 Renal/ Medical History: Denies: Hx Peritoneal Dialysis GI Medical History: Denies: Hx Hepatitis, Hx Hiatal Hernia, Hx Ulcer Infectious Medical History: Denies: Hx Hepatitis Past Surgical History: Denies: Hx Mastectomy, Hx Open Heart Surgery, Hx Pa cemaker - Immunizations Immunizations up to date: Yes Hx Diphtheria, Pertussis, Tetanus Vaccination: Yes Physical Exam - Vital signs Vitals: Temp Pulse Resp BP Pulse Ox 98.6 F 77 18 152/82 H 98 06/01/20 20:21 06/01/20 20:21 06/01/20 20:21 06/01/20 20:21 06/01/20 20:21 Course - Vital Signs Vital signs: Temp Pulse Resp BP Pulse Ox 98.6 F 77 18 152/82 H 98 06/01/20 20:21 06/01/20 20:21 06/01/20 20:21 06/01/20 20:21 06/01/20 20:21 - Laboratory Laboratory results interpreted by me: 06/01/20 20:19 POC Glucose 534 H* Doctor's Discharge - Discharge Referrals: CHRISTIAN TEMPLETON MD [Primary Care Provider] - Follow up as needed
[2020-06-01 21:12] LABS: APPEARANCE,URINE CLEAR; BILIRUBIN,URINE NEGATIVE (NEGATIVE); COLOR,URINE STRAW; GLUCOSE, URINE >=500 mg/dL (NEGATIVE); KETONES,URINE 20 mg/dL (NEGATIVE); LEUKOCYTE ESTERASE,URINE NEGATIVE (NEGATIVE); NITRITE,URINE NEGATIVE (NEGATIVE); PROTEIN,URINE NEGATIVE (NEGATIVE); URINE SPECIFIC GRAVITY 1.036; UROBILINOGEN,URINE NEGATIVE mg/dL (<2.0)
[2020-06-01 21:49] LABS: ABSOLUTE LYMPHOCYTES (AUTO) 2.3 10^3/uL (0.5-4.7); ABSOLUTE MONOCYTES (AUTO) 0.5 10^3/uL (0.1-1.4); ABSOLUTE NEUT (AUTO) 2.3 10^3/uL (1.7-8.2); BASOPHILS % (AUTO) 0.7 % (0-2); EOSINOPHILS % (AUTO) 0.8 % (0-6); HEMATOCRIT 44.2 % (36.0-47.0); HEMOGLOBIN 14.8 g/dL (12.0-15.5); LYMPHOCYTES % (AUTO) 44.3 % (13-45); MEAN CORPUSCULAR HEMOGLOBIN 29.9 pg (27.0-33.4); MEAN CORPUSCULAR HGB CONC 33.6 g/dL (32.0-36.0); MEAN CORPUSCULAR VOLUME 89 fl (80-97); MONOCYTES % (AUTO) 8.8 % (3-13); PLATELET COUNT 282 10^3/uL (150-450); RED BLOOD COUNT 4.96 10^6/uL (3.72-5.28); RED CELL DISTRIBUTION WIDTH 13.4 % (11.5-14.0); SEGMENTED NEUTROPHILS % (AUTO) 45.4 % (42-78); TOTAL CELLS COUNTED % (AUTO) 100 %; WHITE BLOOD COUNT 5.2 10^3/uL (4.0-10.5)
--- NOTE | 2020-06-01 21:56 | ER Document Report ---
ED General - General Chief Complaint: High Blood Sugar Stated Complaint: DIZZINESS,WEAK,HIGH BLOOD SUGAR Time Seen by Provider: 06/01/20 20:34 Primary Care Provider: CHRISTIAN TEMPLETON MD [ACTIVE STAFF] - Follow up as needed SHAZIA JIMENEZ MD [Primary Care Provider] - Follow up as needed TRAVEL OUTSIDE OF THE [place] IN LAST 30 DAYS: No - HPI Notes: 65-year-old female with no significant past medical history presents with approximately 1 week of frequent urination, excessive thirst, craving for sweet foods, and lightheadedness is worse when she goes from sitting to standing. Patient has never had any symptoms like this before, no prior diabetes diagnosis. Other than the symptoms patient has been feeling well and denies any vomiting, abdominal pain, chest pain, shortness of breath, syncope, trauma, dysuria, urgency, fever, abnormal bowel movements, sick contacts, recent travel, headache or neck pain - Related Data Allergies/Adverse Reactions: No Known Allergies Allergy (Verified 11/15/19 19:17) Home Medications: geritol qday Past Medical History - General Information source: Patient - Social History Smoking Status: Never Smoker Family History: DM Patient has homicidal ideation: No - Past Medical History Cardiac Medical History: Reports: Hx Hypercholesterolemia Denies: Hx Heart Attack, Hx Hypertension Pulmonary Medical History: Denies: Hx Asthma Neurological Medical History: Reports: Hx Migraine. Denies: Hx Cerebrovascular Accident, Hx Seizures Endocrine Medical History: Reports: Hx Diabetes Mellitus Type 2 Renal/ Medical History: Denies: Hx Peritoneal Dialysis GI Medical History: Denies: Hx Hepatitis, Hx Hiatal Hernia, Hx Ulcer Infectious Medical History: Denies: Hx Hepatitis Past Surgical History: Denies: Hx Mastectomy, Hx Open Heart Surgery, Hx Pacemaker - Immunizations Immunizations up to date: Yes Hx Diphtheria, Pertussis, Tetanus Vaccination: Yes Review of Systems - Review of Systems Notes: REVIEW OF SYSTEMS: CONSTITUTIONAL : Denies fever, chills, or sweats. EENT: Denies recent cold/sinus symptoms, denies throat pain CARDIOVASCULAR: Denies chest pain, ROSE RESPIRATORY: Denies cough, denies shortness of breath. GASTROINTESTINAL: Denies abdominal pain, nausea/vomiting. GENITOURINARY: Denies difficulty urinating, painful urination. FEMALE GENITOURINARY: Denies abnormal vaginal bleeding, vaginal discharge. MUSCULOSKELETAL: Denies neck pain, back pain. SKIN: Denies rash or skin lesions. HEMATOLOGIC : Denies easy bruising or bleeding. LYMPHATIC: Denies swollen, enlarged glands. NEUROLOGICAL: Denies headache, denies change in gait. PSYCHIATRIC: Denies anxiety or stress or depression. Physical Exam - Vital signs Vitals: Temp Pulse Resp BP Pulse Ox 98.6 F 77 18 152/82 H 98 06/01/20 20:21 06/01/20 20:21 06/01/20 20:21 06/01/20 20:21 06/01/20 20:21 - Notes Notes: PHYSICAL EXAMINATION: GENERAL: Well-appearing, well-nourished and in no acute distress. HEAD: Atraumatic, normocephalic. EYES: Pupils equal round and appropriate constriction, sclera anicteric, conjunctiva are normal. ENT: nares patent, dry mucous membranes. NECK: Normal range of motion, supple without lymphadenopathy LUNGS: Breath sounds clear to auscultation bilaterally and equal. No wheezes rales or rhonchi. Normal respiratory rate and effort HEART: Regular rate and rhythm without murmurs ABDOMEN: Soft, nontender, no guarding, no masses, no CVAT EXTREMITIES: Normal range of motion, no pitting or edema. No cyanosis. NEUROLOGICAL: Awake, alert, conversing appropriately, moves all extremities spontaneously. PSYCH: Normal mood, normal affect. SKIN: Warm, Dry, normal turgor, no rashes or lesions noted. Course - Re-evaluation Re-evalutation: 06/01/20 22:00 Very well-appearing patient, normal vital signs, aside from dry oral mucosa normal physical exam. No signs of DKA but will obtain blood gas and anion gap to rule out. Will assess electrolytes. Patient's age is advanced for the development of new onset diabetes and this is concerning for the risk of pancreatic cancer that is associated with this. I discussed this with the patient and informed her of the increased risk of pancreatic cancer and discussed whether she would like to have a abdominal CT done here to screen for this or if she would like to further discuss with her primary doctor outpatient. Patient consented to having the scans done here which I think is appropriate given that if there is an abnormal finding it will speed patient's access to follow-up and treatment. Troponin ordered prior to my evaluation but patient has no ACS symptoms and there is low pretest probability. No signs of any infectious source precipitating patient's diabetes or hyperglycemia. 06/01/20 22:53 I discussed case with patient's primary doctor Dr. Jimenez and informed him of new onset diabetes with blood glucose of 548 without any elevated anion gap and the decision to order CT abdomen for pancreatic cancer screening. Dr. Jimenez was in agreement with discharging the patient and having her follow-up in the office. Says that she can see him tomorrow morning at [address] Jimenez would like pt started on metformin twice daily which is appropriate given that patient has no current acidosis or AGUSTINA and I have ordered with her first dose. Have also given patient 6 units of lispro subq. Patient feels improved after fluids, pending CT abdomen. 06/02/20 01:30 Patient feels greatly improved after IV fluids, lightheadedness has resolved, no emergent findings on patient's work-up. T wave flattening in V2 and V3 likely artifactual and troponin negative, hyperglycemia but with no elevated anion gap, no acidosis. ketones present on urine likely secondary to dehydration from hyperglycemia and not DKA given that no acidosis is present and patient has normal anion gap and has not been vomiting or hyperventilating to compensate for an acidosis. Patient's blood sugar has decreased appropriately and will send short course of metformin to pharmacy. Patient has appointment to follow-up with Dr. Jimenez at 10 AM today, I gave her extensive return to ED precautions which she demonstrated understanding of. I printed out all of patient's results to bring to her follow-up appointment. Gave patient diabetes education, she denies having any questions or concerns at this time and is ready for discharge. 06/02/20 01:38 - Vital Signs Vital signs: Temp Pulse Resp BP Pulse Ox 98.6 F 77 18 152/82 H 98 06/01/20 20:21 06/01/20 20:21 06/01/20 20:21 06/01/20 20:21 06/01/20 20:21 - Laboratory Result Diagrams: 06/01/20 21:27 06/01/20 21:27 Laboratory results interpreted by me: 06/01/20 06/01/20 06/01/20 20:19 20:58 21:27 Sodium 130.8 L Chloride 94 L Glucose 548 H* POC Glucose 534 H* Urine Glucose (UA) >=500 H Urine Ketones 20 H 06/02/20 00:54 Sodium Chloride Glucose POC Glucose 297 H Urine Glucose (UA) Urine Ketones - EKG Interpretation by Me Additional EKG results interpreted by me: 06/01/20 23:17 Heart rate 76, sinus rhythm, no significant ST elevations or depressions, T wave flattening in V2 and V3, QTC 428 Discharge - Discharge Clinical Impression: Diabetes mellitus, new onset, Hyperglycemia due to diabetes mellitus, Dehydration Disposition: HOME, SELF-CARE Additional Instructions: Diabetes You have diabetes. You will be scheduled for further evaluation. It's very important that you follow through. Uncontrolled high blood sugar leads to early heart disease, strokes, nerve damage, eye damage, and kidney damage. All diabetics should follow a diet designed to control the blood sugar. Overweight diabetics should exercise regularly and lose weight. If this is not sufficient to control the blood sugar, pills or insulin shots are necessary. Younger people who develop diabetes almost always require insulin daily. Home testing of blood sugars or urine sugar is required. Diabetic teaching is available to help you figure insulin doses and monitor the blood sugar. Call the physician if there is faintness, excess sleepiness, or very rapid breathing. If hypoglycemia (LOW blood sugar) develops, symptoms are shakiness, weakness, sweating, and confusion. In this case, you should eat or drink something with sugar at once. Follow-up in Dr. Jimenez's office today at 10 AM without fail. It is extremely important that you keep this appointment in order to start controlling your diabetes and learn how to take care of it. Return to the emergency department immediately if you have any vomiting, shortness of breath, dizziness, fainting, abdominal pain, fever, or any other worsening or alarming symptoms. Your blood pressure was high during this visit at 152/82, discussed this with Dr. Jimenez, untreated high blood pressure can result in heart attack, stroke, disability, . You also had some minor abnormalities on your EKG which you should also discuss with Dr. Jimenez. Bring all of your results and EKG with you to your 10 AM appointment. Prescriptions: Metformin HCl [Glucophage 500 mg Tablet] 500 mg PO BID 7 Days #14 tablet Referrals: CHRISTIAN TEMPLETON MD [ACTIVE STAFF] - Follow up as needed SHAZIA JIMENEZ MD [Primary Care Provider] - Follow up as needed
[2020-06-01 21:57] LABS: VENOUS BLOOD BASE EXCESS -0.9 mmol/L; VENOUS BLOOD HCO3 24.3 mmol/L (20-32); VENOUS BLOOD PCO2 42.3 mmHg (35-63); VENOUS BLOOD PH 7.38 (7.30-7.42)
[2020-06-01 22:14] LABS: ALBUMIN 4.4 g/dL (3.5-5.0); ALKALINE PHOSPHATASE 109 U/L (38-126); ANION GAP 12 (5-19); ASPARTATE AMINO TRANSFERASE 26 U/L (14-36); BILIRUBIN,TOTAL 0.6 mg/dL (0.2-1.3); BLOOD UREA NITROGEN 18 mg/dL (7-20); CALCIUM 10.1 mg/dL (8.4-10.2); CARBON DIOXIDE 25 mmol/L (22-30); CHLORIDE 94 mmol/L (98-107); POTASSIUM 4.5 mmol/L (3.6-5.0); TOTAL PROTEIN 7.5 g/dL (6.3-8.2)
[2020-06-01 22:23] LABS: GLUCOSE 548 mg/dL (75-110)
[2020-06-01] MEDS ORDERED: INSULIN LISPRO 100 UNIT/ML 3 ML VIAL SUBCUT ONE (22:50)
[2020-06-01] MEDS ORDERED: METFORMIN HCL 500 MG TABLET PO ONE (22:53)
--- NOTE | 2020-06-02 00:51 | RADIOLOGY REPORT (SQ) ---
CLINICAL HISTORY: new dm advanced age concern for pancreatic ca COMPARISON: None. TECHNIQUE: CT ABDOMEN PELVIS WITH IV CONTRAST on 06/02/2020 12:00 AM CDT This exam was performed according to our departmental dose-optimization program, which includes automated exposure control, adjustment of the mA and/or kV according to patient size and/or use of iterative reconstruction technique. FINDINGS: Lower lungs are clear. Abdomen: The liver is normal in appearance. There is no biliary dilatation. The gallbladder is normal in appearance. The pancreas and spleen are normal in appearance. The adrenal glands and kidneys are unremarkable. Abdominal aorta is normal in course and caliber without aneurysm. There is no free air. There is no retroperitoneal adenopathy. Pelvis: There is no bowel obstruction. Urinary bladder is unremarkable. There is no free fluid. The uterus is enlarged containing likely underlying fibroids, only some of which are calcified. Appendix is normal. Skeleton: There are no acute osseous findings. No suspicious bony lesions. IMPRESSION: No definite acute process.
[2020-06-02 01:51] VITALS: BP 128/63
--- NOTE | 2020-06-02 09:18 | EKG REPORT ---
SEVERITY:- BORDERLINE ECG - SINUS RHYTHM BORDERLINE T ABNORMALITIES, ANTERIOR LEADS : Confirmed by: Ez De La Torre MD 02-Jun-2020 09:17:09
== END 2020-06-02 02:44 | disposition home or self-care (01) ==
LOC: ER 19:47
DX: E11.65 Type 2 diabetes mellitus with hyperglycemia (principal); R42 Dizziness and giddiness; E86.0 Dehydration; R35.0 Frequency of micturition
CPT/HCPCS: 93005; 99285; 96360; 96361; 36415; 82962; 83735; 85025; 80053; 81001; 84484; 82803; 74177; 93010; J1815; J7030

== ENCOUNTER 2020-06-14 10:14 | Emergency (ER) | payer BC, MEDICARE ==
[2020-06-14] MEDS ORDERED: NORMAL SALINE 1000 ML 1,000 ML IV ONE (10:23)
--- NOTE | 2020-06-14 10:27 | ER Document Report ---
ED Medical Screen (RME) - General Chief Complaint: Dizziness Stated Complaint: DIZZINESS,BLURRED VISION Time Seen by Provider: 06/14/20 10:21 Primary Care Provider: SHAZIA JIMENEZ MD [Primary Care Provider] - Follow up as needed Mode of Arrival: Ambulatory Information source: Patient Notes: 65-year-old female presented to ED for complaint of dizziness blurred vision and dry mouth. She states she was seen on June 01 and diagnosed with type 2 diabetes. She states she went to her primary care doctor they started on metformin. She states Monday she started with blurred vision dizziness and dry mouth. She states that she took her blood sugar this morning at home and it was 149. She states she has no other changes. Patient is alert oriented respirations regular nonlabored. I have ordered blood urine and IV fluids as well as Accu-Cheks. I have also ordered a visual acuity test for the blurred vision. I have greeted and performed a rapid initial assessment of this patient. A comprehensive ED assessment and evaluation of the patient, analysis of test results and completion of medical decision making process will be conducted by an additional ED providers. TRAVEL OUTSIDE OF THE [place] IN LAST 30 DAYS: No - Related Data Allergies/Adverse Reactions: No Known Allergies Allergy (Verified 06/14/20 10:20) Past Medical History - Past Medical History Cardiac Medical History: Reports: Hx Hypercholesterolemia Denies: Hx Heart Attack, Hx Hypertension Pulmonary Medical History: Denies: Hx Asthma Neurological Medical History: Reports: Hx Migraine. Denies: Hx Cerebrovascular Accident, Hx Seizures Endocrine Medical History: Reports: Hx Diabetes Mellitus Type 2 Renal/ Medical History: Denies: Hx Peritoneal Dialysis GI Medical History: Denies: Hx Hepatitis, Hx Hiatal Hernia, Hx Ulcer Infectious Medical History: Denies: Hx Hepatitis Past Surgical History: Denies: Hx Mastectomy, Hx Open Heart Surgery, Hx Pacemaker - Immunizations Immunizations up to date: Yes Hx Diphtheria, Pertussis, Tetanus Vaccination: Yes Physical Exam - Vital signs Vitals: Temp Pulse Resp BP Pulse Ox 98.4 F 78 20 142/77 H 100 06/14/20 10:18 06/14/20 10:18 06/14/20 10:18 06/14/20 10:18 06/14/20 10:18 Course - Vital Signs Vital signs: Temp Pulse Resp BP Pulse Ox 98.4 F 78 20 142/77 H 100 06/14/20 10:18 06/14/20 10:18 06/14/20 10:18 06/14/20 10:18 06/14/20 10:18 Doctor's Discharge - Discharge Referrals: SHAZIA JIMENEZ MD [Primary Care Provider] - Follow up as needed
[2020-06-14 11:13] LABS: ABSOLUTE EOSINOPHILS # (AUTO) 0.1 10^3/uL (0.0-0.6); ABSOLUTE LYMPHOCYTES (AUTO) 1.9 10^3/uL (0.5-4.7); ABSOLUTE MONOCYTES (AUTO) 0.4 10^3/uL (0.1-1.4); ABSOLUTE NEUT (AUTO) 1.8 10^3/uL (1.7-8.2); BASOPHILS % (AUTO) 0.7 % (0-2); EOSINOPHILS % (AUTO) 1.6 % (0-6); LYMPHOCYTES % (AUTO) 44.4 % (13-45); MEAN CORPUSCULAR HEMOGLOBIN 29.9 pg (27.0-33.4); MEAN CORPUSCULAR HGB CONC 33.4 g/dL (32.0-36.0); MEAN CORPUSCULAR VOLUME 90 fl (80-97); MONOCYTES % (AUTO) 9.5 % (3-13); PLATELET COUNT 281 10^3/uL (150-450); RED BLOOD COUNT 4.69 10^6/uL (3.72-5.28); RED CELL DISTRIBUTION WIDTH 13.9 % (11.5-14.0); SEGMENTED NEUTROPHILS % (AUTO) 43.8 % (42-78); TOTAL CELLS COUNTED % (AUTO) 100 %; WHITE BLOOD COUNT 4.2 10^3/uL (4.0-10.5)
[2020-06-14 11:17] LABS: VENOUS BLOOD BASE EXCESS -7.6 mmol/L; VENOUS BLOOD PCO2 48.6 mmHg (35-63); VENOUS BLOOD PH 7.23 (7.30-7.42)
[2020-06-14 11:25] LABS: APPEARANCE,URINE SLIGHTLY-CLOUDY; BILIRUBIN,URINE NEGATIVE (NEGATIVE); COLOR,URINE YELLOW; GLUCOSE, URINE 50 mg/dL (NEGATIVE); KETONES,URINE NEGATIVE (NEGATIVE); LEUKOCYTE ESTERASE,URINE NEGATIVE (NEGATIVE); NITRITE,URINE NEGATIVE (NEGATIVE); PROTEIN,URINE NEGATIVE (NEGATIVE); URINE SPECIFIC GRAVITY 1.025; UROBILINOGEN,URINE NEGATIVE mg/dL (<2.0)
[2020-06-14 11:36] LABS: ALBUMIN 3.8 g/dL (3.5-5.0); ALKALINE PHOSPHATASE 59 U/L (38-126); ANION GAP 6 (5-19); ASPARTATE AMINO TRANSFERASE 57 U/L (14-36); BILIRUBIN,TOTAL 0.4 mg/dL (0.2-1.3); BLOOD UREA NITROGEN 14 mg/dL (7-20); CALCIUM 9.3 mg/dL (8.4-10.2); CARBON DIOXIDE 26 mmol/L (22-30); CHLORIDE 106 mmol/L (98-107); GLUCOSE 178 mg/dL (75-110); POTASSIUM 4.5 mmol/L (3.6-5.0); TOTAL PROTEIN 6.8 g/dL (6.3-8.2)
--- NOTE | 2020-06-14 13:03 | RADIOLOGY REPORT (SQ) ---
EXAM DESCRIPTION: CT HEAD WITHOUT IMAGES COMPLETED DATE/TIME: 06/14/2020 11:49 am REASON FOR STUDY: dizziness COMPARISON: 02/19/2010 TECHNIQUE: Axial images acquired through the brain without intravenous contrast. Images reviewed wit h bone, brain and subdural windows. Images stored on PACS. All CT scanners at this facility use dose modulation, iterative reconstruction, and/or weight based d osing when appropriate to reduce radiation dose to as low as reasonably achievable (ALARA). [facility]: Dose Right [facility]: CareDose [facility]: Dose Right [facility]: Teradose 4D [facility]: Smart Spot Runner RADIATION DOSE: CT Rad equipment meets quality standard of care and radiation dose reduction techniq ues were employed. CTDIvol: 53.2 mGy. DLP: 991 mGy-cm.. LIMITATIONS: None. FINDINGS: VENTRICLES: Normal size and contour. CEREBRUM: No masses. No hemorrhage. No midline shift. Age appropriate white matter. No evidence for a cute infarction. CEREBELLUM: No masses. No hemorrhage. No alteration of density. No evidence for acute infarction. EXTRA-AXIAL SPACES: No fluid collections. ORBITS AND GLOBE: No intra- or extraconal masses. Normal contour of globe without masses. CALVARIUM: No fracture. PARANASAL SINUSES: No fluid or mucosal thickening. SOFT TISSUES: No mass or hematoma. OTHER: No other significant finding. IMPRESSION: NO ACUTE INTRACRANIAL FINDINGS. EVIDENCE OF ACUTE STROKE: NO. TECHNICAL DOCUMENTATION: JOB ID: [id number] Quality ID # [id number]: Final reports with documentation of one or more dose reduction techniques (e.g., Au tomated exposure control, adjustment of the mA and/or kV according to patient size, use of iterative reconstruction technique) 2010 [employer]- All Rights Reserved Reading location - IP/workstation name: [email or web address]
--- NOTE | 2020-06-14 14:09 | ER Document Report ---
Entered by GARTH VELOZ SCRIBE 06/14/20 1134 Acting as scribe for:NISREEN LEAHY MD ED General - General Chief Complaint: Dizziness Stated Complaint: DIZZINESS,BLURRED VISION Time Seen by Provider: 06/14/20 10:21 Primary Care Provider: SHAZIA JIMENEZ MD [Primary Care Provider] - Follow up as needed Mode of Arrival: Ambulatory Information source: Patient Notes: This 65 year old female patient presents to the emergency department today with complaints of dizziness for the past x2 days. Patient states her dizziness is exacerbated with moving around and causes lightheadedness and blurred vision. Patient states she visited the ED around x2 weeks ago, was diagnosed with DM type 2, and placed on Metformin. Patient states she has a appointment in x3 days with her PCP and another appointment with a Hospital Nurse. Patient states her blood sugar was 149 this morning before eating. Patient states she may be dehydrated, reporting dark urine, and not drinking water. Denies any headaches, ear pain, history of strokes or HTN. TRAVEL OUTSIDE OF THE [place] IN LAST 30 DAYS: No - Related Data Allergies/Adverse Reactions: No Known Allergies Allergy (Verified 06/14/20 10:20) Home Medications: metformin Past Medical History - General Information source: Patient - Social History Smoking Status: Never Smoker Cigarette use (# per day): No Chew tobacco use (# tins/day): No Frequency of alcohol use: None Drug Abuse: None Family History: DM Patient has homicidal ideation: No - Past Medical History Cardiac Medical History: Reports: Hx Hypercholesterolemia Denies: Hx Hypertension Neurological Medical History: Reports: Hx Migraine. Denies: Hx Cerebrovascular Accident Endocrine Medical History: Reports: Hx Diabetes Mellitus Type 2 Past Surgical History: Reports: Hx Section - Immunizations Immunizations up to date: Yes Hx Diphtheria, Pertussis, Tetanus Vaccination: Yes Review of Systems - Review of Systems Constitutional: No symptoms reported EENT: See HPI, Blurred vision. denies: Ear pain Cardiovascular: See HPI, Dizziness, Lightheaded Respiratory: No symptoms reported Gastrointestinal: No symptoms reported Genitourinary: See HPI Female Genitourinary: No symptoms reported Musculoskeletal: No symptoms reported Skin: No symptoms reported Hematologic/Lymphatic: See HPI Neurological/Psychological: See HPI. denies: Headaches Physical Exam - Vital signs Vitals: Temp Pulse Resp BP Pulse Ox 98.4 F 78 20 142/77 H 100 06/14/20 10:18 06/14/20 10:18 06/14/20 10:18 06/14/20 10:18 06/14/20 10:18 - General General appearance: Appears well, Alert - HEENT Head: Normocephalic, Atraumatic Eyes: Normal Extraocular movements intact: Yes Pupils: PERRL Ears: Normal External canal: Normal Tympanic membrane: Normal Mouth/Lips: Normal Notes: No lateral gaze nystagmus. Nontender with palpation to frontal and maxillary sinus. - Respiratory Respiratory status: No respiratory distress Chest status: Nontender Breath sounds: Normal Chest palpation: Normal - Cardiovascular Rhythm: Regular Heart sounds: Normal auscultation Murmur: No - Abdominal Inspection: Normal Distension: No distension Bowel sounds: Normal Tenderness: Nontender - Extremities General upper extremity: Normal inspection, Normal ROM, Normal strength. No: Edema General lower extremity: Normal inspection, Normal ROM, Normal strength. No: Edema - Neurological Neuro grossly intact: Yes Cognition: Normal Orientation: AAOx4 Speech: Normal Cranial nerves: Normal Sensory: Normal Notes: Equal pediatric care coordinator strength. No pronator drift. Normal strength of bilateral lower extremities with straight leg raise. Coordination of all 4 extremities is normal with [id number] and [id number] tests. - Psychological Associated symptoms: Normal affect, Normal mood - Skin Skin Temperature: Warm Skin Moisture: Dry Skin Color: Normal Course - Re-evaluation Re-evalutation: 06/14/20 14:03 Patient's not having any blurred vision or dizziness at this time. Patient was ambulatory within the department not showing any signs of stress or ataxia. - Vital Signs Vital signs: Temp Pulse Resp BP Pulse Ox 98.4 F 70 14 142/79 H 96 06/14/20 10:20 06/14/20 12:04 06/14/20 11:01 06/14/20 12:04 06/14/20 11:01 06/14/20 14:03 Vital signs stable - Laboratory Result Diagrams: 06/14/20 10:54 06/14/20 10:54 Laboratory results interpreted by me: 06/14/20 06/14/20 06/14/20 10:47 10:54 10:54 VBG pH 7.23 L Glucose 178 H POC Glucose 160 H AST 57 H ALT 62 H Urine Glucose (UA) Urine Ascorbic Acid 06/14/20 10:54 VBG pH Glucose POC Glucose AST ALT Urine Glucose (UA) 50 H Urine Ascorbic Acid 20 H 06/14/20 14:03 Laboratories show a mild elevation AST ALT otherwise no other acute process. - Diagnostic Test Radiology reviewed: Image reviewed, Reports reviewed Radiology results interpreted by me: 06/14/20 14:04 CT scan of head shows no acute process no no swelling tumor mass and no signs of any acute stroke. - EKG Interpretation by Me Additional EKG results interpreted by me: 06/14/20 14:05 Normal sinus rhythm rate of 79. EKG 12-lead no acute changes questionable old anterior VT with poor R wave progression*in V3. 06/14/20 14:[address]-T wave changes to suggest any acute ischemia at this time. Discharge - Discharge Clinical Impression: Dizziness, Labyrinthitis Condition: Stable Disposition: HOME, SELF-CARE Instructions: Labyrinthitis ([facility]), Meclizine ([facility]) Prescriptions: Meclizine HCl [Antivert 25 mg Tablet] 25 mg PO TID PRN #21 tablet PRN Reason: Referrals: SHAZIA JIMENEZ MD [Primary Care Provider] - Follow up as needed I personally performed the services described in the documentation, reviewed and edited the documentation which was dictated to the scribe in my presence, and it accurately records my words and actions.
[2020-06-14 14:47] VITALS: BP 128/85
--- NOTE | 2020-06-14 20:12 | EKG REPORT ---
SEVERITY:- BORDERLINE ECG - SINUS RHYTHM : Confirmed by: Francois Bo MD 14-Jun-2020 20:11:50
== END 2020-06-14 14:49 | disposition home or self-care (01) ==
LOC: ER 10:14
DX: R42 Dizziness and giddiness (principal); H83.09 Labyrinthitis, unspecified ear; H53.8 Other visual disturbances; E11.9 Type 2 diabetes mellitus without complications; Z79.84 Long term (current) use of oral hypoglycemic drugs
CPT/HCPCS: 93005; 99285; 36415; 82962; 85025; 80053; 81001; 82803; 70450; 93010; J7030